=== PATIENT | female | born 1975 | race Caucasian/White ===

== ENCOUNTER 2016-11-12 07:01 | Emergency (ER) | payer OTHER ==
[~2016-11-12] VITALS: Ht 152.4 cm; Wt 65.0 kg
[~2016-11-12 07:01] MED LIST: LEVO50TA4 PO; TRAM50 PO; ZOCO40TA PO
[2016-11-12 07:07] VITALS: BP 136/102; PULSE 83; RESP 16; TEMP 98.3; O2SAT 100
[2016-11-12] MEDS ORDERED: LEVO50TA4 PO (07:20)
[2016-11-12] MEDS ORDERED: SODIUM CHLOR 0.9% 1000 ML INJ 1,000 ML IV ONE (07:27)
[2016-11-12] MEDS ORDERED: METOCLOPRAMIDE HCL 10 MG/2 ML VIAL IVP ONE (07:30)
[2016-11-12] MEDS ORDERED: diphenhydrAMINE HCL 50 MG/ML VIAL IVP ONE (07:30)
[2016-11-12] MEDS ORDERED: SODIUM CHLORIDE 0.9% FLUSH 5 ML FLUSH IVF PRN (07:30)
--- NOTE | 2016-11-12 07:30 | PD ---
HPI Chief Complaint: Headache Time Seen by Provider: 07:27 Travel History International Travel<30 days: No Contact w/Intl Traveler<30days: No Traveled to known affect area: No History of Present Illness HPI 41-year-old female with history of migraine headaches, presents to the ER today with a 7 out of 10 headache that started last night on its own, she has been nauseous and vomiting. She has photophobia. She states that these headaches are not unusual for her and she is waiting to see a neurologist for them. She denies any fevers, stiff neck, abdominal pain, or any other symptoms. Modifying Factors: None Associated Signs & Symptoms: Headache, nausea and vomiting Risk Factors: Migraine headaches PFSH Past Medical History Arthritis: Yes (chronic low back pain, sciatica) Migraines: Yes Thyroid Disease: Yes Influenza Vaccination: No ?: Not Past Surgical History Hysterectomy: Yes Social History Alcohol Use: Yes (occas) Tobacco Use: No Substance Use: No Allergies-Medications (Allergen,Severity, Reaction): Coded Allergies: Ibuprofen (Verified Allergy, Severe, AIRWAY CLOSES, 04/18/16) Aspirin (Verified Allergy, Intermediate, GI UPSET, 04/18/16) Reported Meds & Prescriptions Reported Meds & Active Scripts Active Reported Levothyroxine (Levothyroxine Sodium) 50 Mcg Tab 50 Mcg PO DAILY Review of Systems Except as stated in HPI: all other systems reviewed are Neg Physical Exam Narrative GENERAL: Middle age white female patient who is well developed, awake, alert, oriented 3, in mild distress. Photophobia. SKIN: Warm and dry. HEAD: Atraumatic. Normocephalic. EYES: Pupils equal and round. No scleral icterus. No injection or drainage. ENT: No nasal bleeding or discharge. Mucous membranes pink and moist. NECK: Trachea midline. No JVD. CARDIOVASCULAR: Regular rate and rhythm. No murmur appreciated. RESPIRATORY: No accessory muscle use. Clear to auscultation. Breath sounds equal bilaterally. GASTROINTESTINAL: Abdomen soft, non-tender, nondistended. Hepatic and splenic margins not palpable. MUSCULOSKELETAL: No obvious deformities. No clubbing. No cyanosis. No edema. NEUROLOGICAL: Awake and alert. No obvious cranial nerve deficits. Motor grossly within normal limits. Normal speech. PSYCHIATRIC: Appropriate mood and affect; insight and judgment normal. Data Data Last Documented VS Vital Signs Date Time Temp Pulse Resp B/P Pulse Ox O2 Delivery O2 Flow Rate FiO2 11/12/16 08:21 98 Room Air 11/12/16 07:07 98.3 83 16 136/102 Orders Ecg Monitoring (11/12/16 07:27) Iv Access Insert/Monitor (11/12/16 07:27) Oximetry (11/12/16 07:27) Sodium Chloride 0.9% Flush (Ns Flush) (11/12/16 07:30) Diphenhydramine Inj (Benadryl Inj) (11/12/16 07:30) Metoclopramide Inj (Reglan Inj) (11/12/16 07:30) Sodium Chlor 0.9% 1000 Ml Inj (Ns 1000 M (11/12/16 07:27) MDM Medical Decision Making Medical Screen Exam Complete: Yes Emergency Medical Condition: Yes Medical Record Reviewed: Yes Differential Diagnosis Headachesmigraine headaches versus meningitis versus other acute intracranial processes Narrative Course Patient was initiated on a liter IV fluids normal saline, Reglan, and Benadryl in the ER. On reevaluation at 8:40 AM, she is feeling improved, states that headache has gone down to below a 5 out of 10. At this point, my plan would be to release her with follow-up to primary care physician and neurologist. We will give her further symptomatic relief for the headache. The plan has been discussed with her and she states understanding. Diagnosis Primary Impression: Migraine headache Med/Other Pt SpecificInfo: Prescription(s) given Scripts Metoclopramide (Reglan)10 Mg Tab10 Mg PO QID PRN (HEADACHE) #20 TAB Ref 0 Prov:Neri Storm MD 11/12/16 Disposition: 01 DISCHARGE HOME Condition: Stable Neri Storm MD Nov 12, 2016 07:30
[2016-11-12 08:21] VITALS: O2SAT 98
[2016-11-12] MEDS ORDERED: REGL10TA5 PO (08:43)
[2016-11-12 08:55] VITALS: BP 150/86; PULSE 73; RESP 18; O2SAT 98
== END 2016-11-12 08:56 | disposition home or self-care (01) ==
LOC: PHED 07:01
DX: G43.909 Migraine, unspecified, not intractable, without status migrainosus (principal)
CPT/HCPCS: 96361; 96374; 96375; 99283; J1200; J2765; J7030

== ENCOUNTER 2017-01-22 10:28 | Emergency (ER) | payer OTHER ==
[~2017-01-22] VITALS: Ht 152.4 cm; Wt 66.0 kg
[~2017-01-22 10:28] MED LIST changes: +REGL10TA5 PO; -TRAM50 PO; -ZOCO40TA PO
[2017-01-22 10:29] VITALS: BP 123/75; PULSE 100; RESP 16; TEMP 98.3; O2SAT 100
[2017-01-22] MEDS ORDERED: LEXA10TA PO (10:44)
[2017-01-22] MEDS ORDERED: CLON1 PO (10:44)
--- NOTE | 2017-01-22 11:19 | PD ---
HPI Chief Complaint: Headache Time Seen by Provider: 11:17 Travel History International Travel<30 days: No Contact w/Intl Traveler<30days: No Traveled to known affect area: No History of Present Illness HPI 41 year old female with PMH of migraine headache presents to the the ED for evaluation of 9/10 frontal headache. Onset ~3am. Accompanied by N/V and blurred vision. Patient states this headache is very similar to her previous headaches. Denies facial droop, speech difficulties, numbness, tingling or weakness of the extremities. Followed by MEDINA Gong who prescribed the patient Fioricet. Patient states that she is out of the medicine. She has an appointment with a neurologist January 28. PFSH Past Medical History Arthritis: Yes (chronic low back pain, sciatica) Migraines: Yes Thyroid Disease: Yes ?: Not Past Surgical History Hysterectomy: Yes Social History Alcohol Use: Yes (occas) Tobacco Use: No Substance Use: No Allergies-Medications (Allergen,Severity, Reaction): Coded Allergies: Ibuprofen (Verified Allergy, Severe, AIRWAY CLOSES, 01/22/17) Imitrex (Verified Allergy, Severe, 01/22/17) Aspirin (Verified Allergy, Intermediate, GI UPSET, 01/22/17) Reported Meds & Prescriptions Reported Meds & Active Scripts Active Fioricet (Icaxqlnwed-Xpwvrnrmpyrrx-Vonapkjs) 50-300-40 Mg Cap 1-2 Cap PO Q6H PRN Reported Klonopin (Clonazepam) 1 Mg Tab 1 Mg PO PRN Lexapro (Escitalopram Oxalate) 10 Mg Tab 10 Mg PO DAILY Levothyroxine (Levothyroxine Sodium) 50 Mcg Tab 50 Mcg PO DAILY Review of Systems Except as stated in HPI: all other systems reviewed are Neg Physical Exam Narrative GENERAL: Well-nourished, well-developed white female in no acute distress. SKIN: Focused skin assessment warm/dry. HEAD: Normocephalic. EYES: No scleral icterus. No injection or drainage. PERRLA. EOMI. NECK: Supple, trachea midline. No JVD or lymphadenopathy. CARDIOVASCULAR: Regular rate and rhythm without murmurs, gallops, or rubs. RESPIRATORY: Breath sounds clear and equal bilaterally. No accessory muscle use. GASTROINTESTINAL: Abdomen soft, non-tender, nondistended. MUSCULOSKELETAL: No cyanosis, or edema. The patient is ambulatory and moves extremities spontaneously. NEUROLOGICAL: Awake and alert. Cranial nerves II through XII intact. Motor and sensory grossly within normal limits. 5/5 muscle strength in all muscle groups. No pronator drift. Normal speech. BACK: Nontender without obvious deformity. No CVA tenderness. Data Data Last Documented VS Vital Signs Date Time Temp Pulse Resp B/P Pulse Ox O2 Delivery O2 Flow Rate FiO2 01/22/17 12:11 82 20 113/63 100 01/22/17 10:29 98.3 Orders Iv Access Insert/Monitor (01/22/17 11:25) Sodium Chloride 0.9% Flush (Ns Flush) (01/22/17 11:30) Sodium Chlor 0.9% 1000 Ml Inj (Ns 1000 M (01/22/17 11:25) Metoclopramide Inj (Reglan Inj) (01/22/17 11:30) Diphenhydramine Inj (Benadryl Inj) (01/22/17 11:30) Morphine Inj (Morphine Inj) (01/22/17 12:15) MDM Medical Decision Making Medical Screen Exam Complete: Yes Emergency Medical Condition: Yes Differential Diagnosis cephalgia versus migraine versus less likely ICH versus other Narrative Course 41 year old female with PMH of migraine headache presents to the the ED for evaluation of 9/10 frontal headache. Onset ~3am. Accompanied by N/V and blurred vision. Patient states this headache is very similar to her previous headaches. Denies facial droop, speech difficulties, numbness, tingling or weakness of the extremities. Followed by MEDINA Valencia who prescribed the patient Fioricet. Patient states that she is out of the medicine. She has an appointment with a neurologist January 28. Vitals reviewed. Physical exam reveals a nontoxic appearing white female in NAD. No focal neuro deficits. Cranial nerves II through XII grossly intact. 5/5 strength in all extremities. IV was established. Patient was administered IV Benadryl, Reglan and a liter of normal saline. On repeat check she denies improvement of symptoms. She was administered 2 mg morphine IV. On recheck the patient is sleeping on the stretcher, reports improvement of her symptoms. No episodes of vomiting in the ED. Patient is instructed to rest, hydrate, avoid known stressors, follow-up with primary care and neurologist as planned. She was provided a few doses of Fioricet. She indicated understanding of the instructions and is agreeable to the care plan. The patient is stable and discharged home. Diagnosis Primary Impression: Migraine headache Qualified Code: G43.709 - Chronic migraine without aura without status migrainosus, not intractable Referrals: Primary Care Physician Patient Instructions: General Instructions, Migraine Headache (ED) Additional Instructions: Rest, hydrate. Avoid known stressors. Follow up with the primary care provider and neurologist as discussed. Return to the ED for any urgent of emergent medical condition. Med/Other Pt SpecificInfo: Prescription(s) given Scripts Nfgblfemwl-Dpvimwbuohllg-Qucgjbyj (Fioricet)50-300-40 Mg Cap1-2 Cap PO Q6H PRN ( HEADACHE) #6 CAP Ref 0 Prov:Saeid Richardson MD 01/22/17 Disposition: 01 DISCHARGE HOME Condition: Stable Elvie Alatorre January 22, 2017 11:19 Elvie Alatorre January 22, 2017 11:19
[2017-01-22] MEDS ORDERED: SODIUM CHLOR 0.9% 1000 ML INJ 1,000 ML IV ONE (11:25)
[2017-01-22] MEDS ORDERED: SODIUM CHLORIDE 0.9% FLUSH 10 ML FLUSH IVF PRN (11:30)
[2017-01-22] MEDS ORDERED: METOCLOPRAMIDE HCL 10 MG/2 ML VIAL IVP ONE (11:30)
[2017-01-22] MEDS ORDERED: diphenhydrAMINE HCL 50 MG/ML VIAL IVP ONE (11:30)
[2017-01-22] MEDS ORDERED: BUTA1CAP PO (11:33)
[2017-01-22 12:11] VITALS: BP 113/63; PULSE 82; RESP 20; O2SAT 100
[2017-01-22] MEDS ORDERED: MORPHINE SULFATE 4 MG/ML INJ IV PUSH ONE (12:15)
== END 2017-01-22 12:46 | disposition home or self-care (01) ==
LOC: PHEFT 10:28
DX: G43.909 Migraine, unspecified, not intractable, without status migrainosus (principal); M19.90 Unspecified osteoarthritis, unspecified site; Z79.899 Other long term (current) drug therapy
CPT/HCPCS: 96361; 96374; 96375; 99284; J1200; J2270; J2765; J7030

== ENCOUNTER 2017-01-24 16:32 | Emergency (ER) | payer OTHER ==
[~2017-01-24] VITALS: Ht 152.4 cm; Wt 67.0 kg
[~2017-01-24 16:32] MED LIST changes: +BUTA1CAP PO; +CLON1 PO; +LEXA10TA PO; -REGL10TA5 PO
[2017-01-24 16:39] VITALS: BP 120/82; PULSE 83; RESP 16; TEMP 98.5; O2SAT 100
[2017-01-24] MEDS ORDERED: PROCHLORPERAZINE INJ 10 MG/2 ML VIAL IVP ONE (17:00)
[2017-01-24] MEDS ORDERED: SODIUM CHLORIDE 0.9% FLUSH 10 ML FLUSH IVF PRN (17:00)
[2017-01-24] MEDS ORDERED: diphenhydrAMINE HCL 50 MG/ML VIAL IVP ONE (17:00)
--- NOTE | 2017-01-24 17:12 | PD ---
HPI . Migraine headache Chief Complaint: Headache Time Seen by Provider: 16:48 Travel History International Travel<30 days: No Contact w/Intl Traveler<30days: No Traveled to known affect area: No History of Present Illness HPI Patient presents with the chief complaint of migraine. She describes a throbbing frontal headache. It is associated with photophobia, phonophobia and nausea. It has been unrelieved by Fioricet. She reports that she has been "foggy." Patient reports a lifelong history of migraine headaches. She has moved here from [place] and does not have a neurologist to follow her for her headaches. [facility] Past Medical History Arthritis: Yes (chronic low back pain, sciatica) Diminished Hearing: No Migraines: Yes Thyroid Disease: Yes Tetanus Vaccination: Unknown ?: Not Past Surgical History Hysterectomy: Yes Social History Alcohol Use: Yes (occas) Tobacco Use: No Substance Use: No Allergies-Medications (Allergen,Severity, Reaction): Coded Allergies: Ibuprofen (Verified Allergy, Severe, AIRWAY CLOSES, 01/24/17) Imitrex (Verified Allergy, Severe, 01/24/17) Aspirin (Verified Allergy, Intermediate, GI UPSET, 01/24/17) Reported Meds & Prescriptions Reported Meds & Active Scripts Active Fioricet (Ydyxwloasb-Cjsiupzjyayji-Cbjmwoie) 50-300-40 Mg Cap 1-2 Cap PO Q6H PRN Reported Klonopin (Clonazepam) 1 Mg Tab 1 Mg PO PRN Lexapro (Escitalopram Oxalate) 10 Mg Tab 10 Mg PO DAILY Levothyroxine (Levothyroxine Sodium) 50 Mcg Tab 50 Mcg PO DAILY Review of Systems Except as stated in HPI: all other systems reviewed are Neg Eyes: Positive: Photophobia, No: Blurred Vision HENT: Positive: Headaches Physical Exam Narrative GENERAL: Patient is awake and alert and does not appear to be in any acute distress. SKIN: Warm and dry. HEAD: Atraumatic. Normocephalic. EYES: Pupils equal and round. Extraocular movements are intact. ENT: No nasal bleeding or discharge. Mucous membranes pink and moist. NECK: Trachea midline. Supple. CARDIOVASCULAR: Regular rate and rhythm. RESPIRATORY: No accessory muscle use. MUSCULOSKELETAL: No obvious deformities. No edema. NEUROLOGICAL: Awake and alert. No obvious cranial nerve deficits. Motor grossly within normal limits. Normal speech. Qsbbyi-tzmj-fgopxm exam is intact. PSYCHIATRIC: Appropriate mood and affect; insight and judgment normal. Data Data Last Documented VS Vital Signs Date Time Temp Pulse Resp B/P Pulse Ox O2 Delivery O2 Flow Rate FiO2 01/24/17 18:12 65 18 163/75 98 Room Air 01/24/17 16:39 98.5 Orders Iv Access Insert/Monitor (01/24/17 16:49) Sodium Chloride 0.9% Flush (Ns Flush) (01/24/17 17:00) Prochlorperazine Inj (Compazine Inj) (01/24/17 17:00) Diphenhydramine Inj (Benadryl Inj) (01/24/17 17:00) Mri Brain W/O Contrast (01/24/17 17:06) Lorazepam Inj (Ativan Inj) (01/24/17 18:30) MDM Medical Decision Making Medical Screen Exam Complete: Yes Emergency Medical Condition: Yes Differential Diagnosis Differential diagnosis of headache includes but is not limited to migraine, muscle contraction headache, brain tumor, brain bleed Narrative Course Patient presents with a headache. She has not had any recent imaging done here. I have ordered an MRI of the complaint of mental status change. Diagnosis Primary Impression: Migraine headache Qualified Code: G43.901 - Migraine with status migrainosus, not intractable, unspecified migraine type Disposition: 01 DISCHARGE HOME Condition: Stable Cassy Garland MD January 24, 2017 17:12
[2017-01-24 18:12] VITALS: BP 163/75; PULSE 65; RESP 18; O2SAT 98
[2017-01-24] MEDS ORDERED: LORazepam 2 MG/ML VIAL IV PUSH SCH (18:30)
[2017-01-24 19:14] VITALS: BP 135/78; PULSE 82; RESP 16; O2SAT 96
[2017-01-24] MEDS ORDERED: ONDANSETRON HCL 4 MG/2 ML VIAL IV ONE (19:30)
[2017-01-24] MEDS ORDERED: HYDROmorphone HCL PF 1 MG/ML VIAL IVP ONE ×2 (19:30→20:30)
--- NOTE | 2017-01-24 19:59 | RADHPO ---
EXAM DATE/TIME: 01/24/2017 19:10 [facility] COMPARISON: No previous studies available for comparison. INDICATIONS : Cephalgia. MEDICAL HISTORY : None. SURGICAL HISTORY : Hysterectomy. ENCOUNTER: Initial ACUITY: 1 day PAIN SCORE: 4/10 LOCATION: cranial TECHNIQUE: Multiplanar, multisequence MRI of the brain was performed without contrast. FINDINGS: CEREBRUM: The ventricles are normal for age. No evidence of midline shift, mass lesion, hemorrha ge or acute infarction. No extraaxial fluid collections are seen. The pituitary gland and suprasell ar cistern are normal in configuration. WHITE MATTER: No significant signal abnormalities are seen in the white matter. POSTERIOR FOSSA: The cerebellum and brainstem are intact. The 4th ventricle is midline. The cere bellopontine angle is unremarkable. The cerebellar tonsils are normal in position. DIFFUSION IMAGING: No focal areas of restricted diffusion are seen. No evidence of acute infarct ion. EXTRACRANIAL: The visualized portions of the orbits and paranasal sinuses are unremarkable. CONCLUSION: Negative MRI of the brain. MRI cannot be used to exclude an acute subarachnoid hemor rhage in the various paramagnetic appearances of hemorrhage.. Otis Camacho MD FACR on January 24, 2017 at 19:54 Board Certified Radiologist. This report was verified electronically.
[2017-01-24] MEDS ORDERED: KETOROLAC TROMETHAMINE 60 MG/2 ML (IM) VIAL IVP ONE (20:30)
--- NOTE | 2017-01-24 21:05 | RADHPO ---
EXAM DATE/TIME: 01/24/2017 20:43 [facility] COMPARISON: No previous studies available for comparison. INDICATIONS : Cephalgia. RADIATION DOSE: 64.37 CTDIvol (mGy) MEDICAL HISTORY : None SURGICAL HISTORY : Hysterectomy. ENCOUNTER: Initial ACUITY: 1 day PAIN SCALE: 8/10 LOCATION: Bilateral cranial TECHNIQUE: Multiple contiguous axial images were obtained of the head. Using automated exposure control and adj ustment of the mA and/or kV according to patient size, radiation dose was kept as low as reasonably a chievable to obtain optimal diagnostic quality images. FINDINGS: CEREBRUM: The ventricles are normal for age. No evidence of midline shift, mass lesion, hemorrhage or acute in farction. No extra-axial fluid collections are seen. POSTERIOR FOSSA: The cerebellum and brainstem are intact. The 4th ventricle is midline. The cerebellopontine angle i s unremarkable. EXTRACRANIAL: The visualized portion of the orbits is intact. SKULL: The calvaria is intact. No evidence of skull fracture. CONCLUSION: No acute disease. Otis Camacho MD FACR on January 24, 2017 at 21:02 Board Certified Radiologist. This report was verified electronically.
[2017-01-24 21:26] VITALS: BP 146/80; PULSE 78; RESP 16; O2SAT 96
--- NOTE | 2017-01-24 21:29 | PD ---
Physical Exam Time Seen by Provider: 21:[address] Garland left this patient with me to check the results of the MRI that she ordered and make a disposition, likely discharge. Data Data Last Documented VS Vital Signs Date Time Temp Pulse Resp B/P Pulse Ox O2 Delivery O2 Flow Rate FiO2 01/24/17 21:26 Room Air 01/24/17 21:26 78 16 146/80 96 01/24/17 16:39 98.5 Orders Iv Access Insert/Monitor (01/24/17 16:49) Sodium Chloride 0.9% Flush (Ns Flush) (01/24/17 17:00) Prochlorperazine Inj (Compazine Inj) (01/24/17 17:00) Diphenhydramine Inj (Benadryl Inj) (01/24/17 17:00) Mri Brain W/O Contrast (01/24/17 17:06) Lorazepam Inj (Ativan Inj) (01/24/17 18:30) Hydromorphone Pf Inj (Dilaudid Pf Inj) (01/24/17 19:30) Ondansetron Inj (Zofran Inj) (01/24/17 19:30) Ketorolac Inj (Toradol Inj) (01/24/17 20:30) Hydromorphone Pf Inj (Dilaudid Pf Inj) (01/24/17 20:30) Ct Brain W/O Iv Contrast(Rout) (01/24/17 20:37) Ed Urine Pregnancytest Poc (01/24/17 20:39) Urinalysis - C+S If Indicated (01/24/17 20:39) Labs Laboratory Tests Test 01/24/17 21:10 Urine Color YELLOW Urine Turbidity SLIGHTY CLOUDY Urine pH 5.5 Urine Specific [place] 1.004 Urine Protein NEG mg/dL Urine Glucose (UA) NEG mg/dL Urine Ketones NEG mg/dL Urine Occult Blood NEG Urine Nitrite NEG Urine Bilirubin NEG Urine Leukocyte Esterase SMALL Urine WBC 3-5 /hpf Urine Squamous Epithelial 0-5 /hpf Cells Urine Bacteria OCC /hpf Microscopic Urinalysis Comment CULT NOT INDICATED MDM Medical Record Reviewed: Yes Supervised Visit with KI: Yes Interpretation(s) The CT brain is normal. The urine shows slightly cloudy turbidity, small leukocyte esterase but is otherwise unremarkable and culture is not indicated. Differential Diagnosis Migraine headache, tension headache, tension/migraine combination headache, cluster headache, intracranial bleedunlikely Narrative Course The patient states she had a headache of 8/10 when she came in. The headache was global and of gradual onset. The headache is now 10 over 10 after the patient has been given multiple medications. The MRI is normal. The patient states that she moved in town about a year ago but sometimes required admission at another hospital because of intractable headache. It is now 1019 and the patient's headache is greatly reduced and she wants to go home. This would be a good idea because sleep would help her. The CT brain and the MRI of the brain are both normal. Impression: Migraine headache Plan: The patient will be given prescriptions for Fioricet and Percocet 12/31/24, 12 tablets. Diagnosis Primary Impression: Migraine headache Qualified Code: G43.901 - Migraine with status migrainosus, not intractable, unspecified migraine type Additional Instruction: As you have indicated, to follow-up with your neurologist. We will give you the results of the imaging done here. This will help him. I wrote prescriptions for Fioricet and a few Percocet fives. Med/Other Pt SpecificInfo: Prescription(s) given Scripts Xrkufuefkz-Bzdooonkqpvhw-Kmgronwm (Fioricet)50-300-40 Mg Cap1 Cap PO Q4H PRN ( HEADACHE) #30 CAP Ref 0 Prov:Alexander Turner MD 01/24/17 Oxycodone-Acetaminophen (Percocet)5-325 mg Tab1 Tab PO Q4H PRN (PAIN) #12 TAB Ref 0 Prov:Alexander Turner MD 01/24/17 Disposition: 01 DISCHARGE HOME Condition: Stable Alexander Turner MD January 24, 2017 21:29
[2017-01-24 21:34] LABS: BLOOD, URINE NEG (NEG); GLUCOSE,URINE NEG (NEG); KETONE, URINE NEG (NEG); NITRITE,URINE NEG (NEG); PH, URINE 5.5 (5.0-8.5)
[2017-01-24 21:43] LABS: URINE COLOR YELLOW (YELLW/STRAW)
[2017-01-24 21:44] LABS: BACTERIA, URINE OCC /hpf; COMMENT (UR) CULT NOT INDICATED; CULTURE IF INDICATED CULT NOT INDICATED; SQUAMOUS EPITHELIAL CELL URINE 0-5 /hpf (0-5)
[2017-01-24 22:20] VITALS: RESP 16
[2017-01-24] MEDS ORDERED: PERC5TAB12 PO (22:21)
[2017-01-24] MEDS ORDERED: BUTA1CAP PO (22:22)
[2017-01-24 22:34] VITALS: BP 106/59
== END 2017-01-24 22:50 | disposition home or self-care (01) ==
LOC: PHED 16:32
DX: G43.901 Migraine, unspecified, not intractable, with status migrainosus (principal)
CPT/HCPCS: 70450; 70551; 81001; 84703; 96374; 96375; 96376; 99285; J0780; J1170; J1200; J1885; J2060; J2405

== ENCOUNTER 2017-02-16 23:30 | Emergency (ER) | payer OTHER ==
[~2017-02-16] VITALS: Ht 152.4 cm; Wt 66.1 kg
[~2017-02-16 23:30] MED LIST changes: +PERC5TAB12 PO
[2017-02-16 23:33] VITALS: BP 137/100; PULSE 93; RESP 16; TEMP 97.5; O2SAT 99
[2017-02-16] MEDS ORDERED: DEPA500T PO (23:51)
[2017-02-17] MEDS ORDERED: SODIUM CHLOR 0.9% 1000 ML INJ 1,000 ML IV ONE (00:26)
[2017-02-17] MEDS ORDERED: HYDROmorphone HCL PF 1 MG/ML VIAL IVS ONE (00:30)
[2017-02-17] MEDS ORDERED: PROCHLORPERAZINE INJ 10 MG/2 ML VIAL IVP ONE (00:30)
[2017-02-17] MEDS ORDERED: diphenhydrAMINE HCL 50 MG/ML VIAL IVP ONE (00:30)
[2017-02-17] MEDS ORDERED: SODIUM CHLORIDE 0.9% FLUSH 10 ML FLUSH IVF PRN (00:30)
--- NOTE | 2017-02-17 00:32 | PD ---
HPI Chief Complaint: Headache Time Seen by Provider: 00:20 Travel History International Travel<30 days: No Contact w/Intl Traveler<30days: No Traveled to known affect area: No History of Present Illness HPI The patient is a 41-year-old female that has a history of migraine headaches. She was here approximately 3 weeks ago for the same thing. [place] Klonopin and Depakote but she states they headache medicine is not working. Occasionally Fioricet doesn't work. She states this is her typical bifrontal throbbing headache that she experiences with her typical migraine. The headache is of gradual onset and associated with photophobia/phonophobia along with nausea and vomiting. She states that Imitrex makes her "throat swell". PFSH Past Medical History Arthritis: Yes (chronic low back pain, sciatica) Diminished Hearing: No Immunizations Current: No Migraines: Yes Thyroid Disease: Yes Tetanus Vaccination: < 5 Years Influenza Vaccination: No ?: Not Past Surgical History Hysterectomy: Yes Social History Alcohol Use: Yes (occas) Tobacco Use: No Substance Use: No Allergies-Medications (Allergen,Severity, Reaction): Coded Allergies: Ibuprofen (Verified Allergy, Severe, AIRWAY CLOSES, 02/16/17) Imitrex (Verified Allergy, Severe, Anaphylaxis, 02/16/17) Aspirin (Verified Allergy, Intermediate, GI UPSET, 02/16/17) Reported Meds & Prescriptions Reported Meds & Active Scripts Active Fioricet (Uybjknpgfc-Kyorqbgexyykt-Rtdhnvha) 50-300-40 Mg Cap 1-2 Cap PO Q6H PRN Reported Depakote DR (Divalproex Sodium) 500 Mg Tabdr 500 Mg PO BID Klonopin (Clonazepam) 1 Mg Tab 1 Mg PO PRN Lexapro (Escitalopram Oxalate) 10 Mg Tab 10 Mg PO DAILY Levothyroxine (Levothyroxine Sodium) 50 Mcg Tab 50 Mcg PO DAILY Review of Systems Except as stated in HPI: all other systems reviewed are Neg Physical Exam Narrative GENERAL: The patient is alert, oriented 3 in moderate apparent distress with her headache. Her vital signs aren't normal except for heart rate of 93 and blood pressure 137/100. SKIN: Focused skin assessment warm/dry. No needle tracks nor wrist slash mai are present. HEAD: Atraumatic. Normocephalic. EYES: Pupils equal and round. No scleral icterus. No injection or drainage. ENT: No nasal bleeding or discharge. Mucous membranes pink and moist. NECK: Trachea midline. No JVD. There is no meningismus and the patient flexes neck fully so that the chin touches her chest without any problem. CARDIOVASCULAR: Regular rate and rhythm. No murmur appreciated. RESPIRATORY: No accessory muscle use. Clear to auscultation. Breath sounds equal bilaterally. GASTROINTESTINAL: Abdomen soft, non-tender, nondistended. Hepatic and splenic margins not palpable. MUSCULOSKELETAL: No obvious deformities. No clubbing. No cyanosis. No edema. NEUROLOGICAL: Awake and alert. No obvious cranial nerve deficits. Motor grossly within normal limits. Normal speech and gait. PSYCHIATRIC: The patient is anxious; insight and judgment normal. Data Data Last Documented VS Vital Signs Date Time Temp Pulse Resp B/P Pulse Ox O2 Delivery O2 Flow Rate FiO2 02/17/17 00:51 104 16 126/64 95 Room Air 02/16/17 23:33 97.5 Orders Ecg Monitoring (02/17/17 00:26) Iv Access Insert/Monitor (02/17/17 00:26) Oximetry (02/17/17 00:26) Sodium Chloride 0.9% Flush (Ns Flush) (02/17/17 00:30) Prochlorperazine Inj (Compazine Inj) (02/17/17 00:30) Diphenhydramine Inj (Benadryl Inj) (02/17/17 00:30) Hydromorphone Pf Inj (Dilaudid Pf Inj) (02/17/17 00:30) Sodium Chlor 0.9% 1000 Ml Inj (Ns 1000 M (02/17/17 00:26) MDM Medical Decision Making Medical Screen Exam Complete: Yes Emergency Medical Condition: Yes Medical Record Reviewed: Yes Differential Diagnosis Migraine headache, cluster headache, tension headache, tension/migraine, tension headache, normal pressure hydrocephalusunlikely, intracranial bleed highly unlikely Narrative Course It is now 0107 and the patient is sleeping. The patient will go home and sleep and is discharged on Fioricet. She will follow up with her neurologist in [place]. Diagnosis Primary Impression: Migraine headache Additional Instructions: Follow-up with your neurologist in [place]. There are many medications that he can try if you do not think or you are taking is working. Med/Other Pt SpecificInfo: Prescription(s) given Scripts Ohhpojfill-Grevvtcldlcql-Qqmkvdxe (Fioricet)50-300-40 Mg Cap1-2 Cap PO Q6H PRN ( HEADACHE) #30 CAP Ref 0 Prov:Alexander Turner MD 02/17/17 Disposition: 01 DISCHARGE HOME Condition: Stable Alexander Turner MD Feb 17, 2017 00:32
[2017-02-17 00:51] VITALS: BP 126/64; PULSE 104; RESP 16; O2SAT 95
[2017-02-17] MEDS ORDERED: BUTA1CAP PO (01:09)
== END 2017-02-17 01:23 | disposition home or self-care (01) ==
LOC: PHED 23:30
DX: G43.909 Migraine, unspecified, not intractable, without status migrainosus (principal); E07.9 Disorder of thyroid, unspecified
CPT/HCPCS: 96361; 96374; 96375; 99284; J0780; J1170; J1200; J7030

== ENCOUNTER 2017-04-11 18:24 | Emergency (ER) | payer OTHER ==
[~2017-04-11] VITALS: Ht 152.4 cm; Wt 66.0 kg
[~2017-04-11 18:24] MED LIST changes: +DEPA500T PO; -PERC5TAB12 PO
[2017-04-11 18:28] VITALS: BP 116/56; PULSE 66; RESP 18; TEMP 98; O2SAT 98
[2017-04-11] MEDS ORDERED: VITA10002 PO (19:13)
[2017-04-11] MEDS ORDERED: HYDR50TA94 PO (19:13)
[2017-04-11] MEDS ORDERED: VIIB40TA PO (19:13)
[2017-04-11] MEDS ORDERED: VITA250C3 CHEW (19:13)
[2017-04-11] MEDS ORDERED: DEPA500T3 PO (19:13)
--- NOTE | 2017-04-11 19:29 | PD ---
HPI Chief Complaint: Facial Pain or Swelling Time Seen by Provider: 19:00 Travel History International Travel<30 days: No Contact w/Intl Traveler<30days: No Traveled to known affect area: No History of Present Illness HPI 41-year-old female presents to the emergency room for evaluation of left-sided dental pain and swelling for the past 2 days. States excruciating pain started first and then swelling developed shortly afterward. Patient has been taking Tylenol without any relief in symptoms. She cannot take ibuprofen because it causes anaphylaxis. She denies fever, chills, nausea, vomiting, or draining. She has an appointment with her dentist in 1 week but cannot take the pain until then. PFSH Past Medical History Arthritis: Yes (chronic low back pain, sciatica) Diminished Hearing: No Immunizations Current: No Migraines: Yes Thyroid Disease: Yes ?: Not Past Surgical History Hysterectomy: Yes Social History Alcohol Use: Yes (occas) Tobacco Use: No Substance Use: No Allergies-Medications (Allergen,Severity, Reaction): Coded Allergies: Ibuprofen (Verified Allergy, Severe, AIRWAY CLOSES, 04/11/17) Imitrex (Verified Allergy, Severe, Anaphylaxis, 04/11/17) Aspirin (Verified Allergy, Intermediate, GI UPSET, 04/11/17) Reported Meds & Prescriptions Reported Meds & Active Scripts Active Tramadol (Tramadol HCl) 50 Mg Tab 50 Mg PO Q6H PRN Clindamycin (Clindamycin HCl) 300 Mg Cap 300 Mg PO Q6H 10 Days Reported Vitamin C (Ascorbic Acid) 250 Mg Chew 500 Mg CHEW DAILY Hydroxyzine HCl 50 Mg Tab 50 Mg PO HS Viibryd (Vilazodone) 40 Mg Tab 40 Mg PO DAILY Vitamin B-12 (Cyanocobalamin) 1,000 Mcg Tab 1,000 Mcg PO DAILY Depakote ER (Divalproex Sodium) 500 Mg Sarbjit 500 Mg PO BID Klonopin (Clonazepam) 1 Mg Tab 1 Mg PO PRN Levothyroxine (Levothyroxine Sodium) 50 Mcg Tab 50 Mcg PO DAILY Review of Systems Except as stated in HPI: all other systems reviewed are Neg Physical Exam Narrative GENERAL: Well-nourished, well-developed female in no acute distress. Afebrile. Ambulatory. SKIN: Focused skin assessment warm/dry. HEAD: Normocephalic. EYES: No scleral icterus. No injection or drainage. NECK: Supple, trachea midline. No JVD or lymphadenopathy. DENTAL: No loose or chipped teeth. No malocclusion. There is extreme decay of tooth #18. There is moderate purulent drainage from the tooth. Mild surrounding erythema. Moderate edema that is tender to palpation. No submental , submandibular, or buccal induration. CARDIOVASCULAR: Regular rate and rhythm without murmurs, gallops, or rubs. RESPIRATORY: Breath sounds equal bilaterally. No accessory muscle use. Data Data Last Documented VS Vital Signs Date Time Temp Pulse Resp B/P Pulse Ox O2 Delivery O2 Flow Rate FiO2 04/11/17 18:28 98.0 66 18 116/56 98 MDM Medical Decision Making Medical Screen Exam Complete: Yes Emergency Medical Condition: Yes Medical Record Reviewed: Yes Differential Diagnosis dentalgia, dental decay, dental abscess Narrative Course 41-year-old female presents to the emergency room for evaluation of left-sided dental pain and swelling for the past several days. No history of fevers. Denies drainage. Patient is afebrile and well-appearing in the emergency room. Physical exam reveals mild to moderate edema without induration. Tooth #18 is draining purulent discharge. No evidence of Peter angina. Patient will be discharged with prescriptions for tramadol and clindamycin and told to follow- up with her dentist as planned or return for worsening symptoms. She understands and agrees to plan. Diagnosis Primary Impression: Dental abscess Referrals: Dentist Patient Instructions: Dental Abscess (ED), General Instructions Additional Instructions: Rest and drink plenty of fluids. Tramadol as directed, as needed for pain. Clindamycin as directed, until gone. Follow-up with a dentist. Return to the emergency room for worsening symptoms. Med/Other Pt SpecificInfo: Prescription(s) given Scripts Tramadol 50 Mg Tab50 Mg PO Q6H PRN (PAIN) #12 TAB Ref 0 Prov:Alexander Turner MD 04/11/17 Clindamycin 300 Mg [id number] Mg PO Q6H 10 Days Ref 0 Prov:Alexander Turner MD 04/11/17 Disposition: 01 DISCHARGE HOME Condition: Stable Cinda Lane Apr 11, 2017 19:29
[2017-04-11] MEDS ORDERED: CLIN1CAP6 PO (19:30)
[2017-04-11] MEDS ORDERED: TRAM50TA PO (19:30)
== END 2017-04-11 19:35 | disposition home or self-care (01) ==
LOC: PHED 18:24 → PHEFT 19:35
DX: K04.7 Periapical abscess without sinus (principal)
CPT/HCPCS: 99284

== ENCOUNTER 2017-05-12 06:36 | Emergency (ER) | payer OTHER ==
[~2017-05-12] VITALS: Ht 152.4 cm; Wt 65.8 kg
[~2017-05-12 06:36] MED LIST changes: -BUTA1CAP PO; +CLIN1CAP6 PO; -DEPA500T PO; +DEPA500T3 PO; +HYDR50TA94 PO; -LEXA10TA PO; +TRAM50TA PO; +VIIB40TA PO; +VITA10002 PO; +VITA250C3 CHEW
[2017-05-12 06:40] VITALS: BP 132/79; PULSE 92; RESP 18; TEMP 97.8; O2SAT 97
[2017-05-12 07:48] VITALS: BP 130/75; PULSE 88; RESP 18; O2SAT 100
[2017-05-12] MEDS ORDERED: HYDROmorphone HCL PF 1 MG/ML VIAL IV PUSH ONE ×2 (09:45→11:30)
[2017-05-12] MEDS ORDERED: SODIUM CHLOR 0.9% 1000 ML INJ 1,000 ML IV ONE (09:45)
[2017-05-12] MEDS ORDERED: METOCLOPRAMIDE HCL 10 MG/2 ML VIAL IV PUSH ONE (09:45)
[2017-05-12] MEDS ORDERED: diphenhydrAMINE HCL 50 MG/ML VIAL IV PUSH ONE (09:45)
--- NOTE | 2017-05-12 09:49 | PD ---
HPI Chief Complaint: Headache Time Seen by Provider: 09:39 Travel History International Travel<30 days: No Contact w/Intl Traveler<30days: No Traveled to known affect area: No History of Present Illness HPI This 41-year-old female is complaining of headache. She says she has a history of stress-induced migraines. She has had a headache since 4:00 yesterday afternoon. She usually gets relief with the Reglan and Benadryl occasionally she needs Dilaudid. She says this headache is worse than usual. She has vomited 6 times. She has had a hysterectomy. She does see a neurologist. She was here in January 24 and had a negative CT and MRI of the brain. [facility] Past Medical History Arthritis: Yes (chronic low back pain, sciatica) Diminished Hearing: No Immunizations Current: No Migraines: Yes Thyroid Disease: Yes Past Surgical History Hysterectomy: Yes Social History Alcohol Use: Yes (occas) Tobacco Use: No Substance Use: No Allergies-Medications (Allergen,Severity, Reaction): Coded Allergies: ibuprofen (Unverified Allergy, Severe, AIRWAY CLOSES, 05/12/17) sumatriptan (Unverified Allergy, Severe, Anaphylaxis, 05/12/17) aspirin (Unverified Allergy, Intermediate, GI UPSET, 05/12/17) Reported Meds & Prescriptions Reported Meds & Active Scripts Active Reported Depakote ER (Divalproex Sodium) 500 Mg Sarbjit 500 Mg PO BID Klonopin (Clonazepam) 1 Mg Tab 1 Mg PO PRN Levothyroxine (Levothyroxine Sodium) 50 Mcg Tab 50 Mcg PO DAILY Review of Systems General / Constitutional: No: Fever, Chills Eyes: Positive: Blurred Vision, No: Diploplia HENT: Positive: Headaches Cardiovascular: No: Chest Pain or Discomfort, Palpitations Respiratory: No: Cough, Shortness of Breath Gastrointestinal: Positive: Vomiting Genitourinary: No: Urgency, Frequency Musculoskeletal: No: Myalgias, Arthralgias Skin: No Rash, No Itching Neurologic: Positive: Dizziness, No: Weakness Hematologic/Lymphatic: No: Easy Bruising Physical Exam Narrative GENERAL: Well-developed female SKIN: Focused skin assessment warm/dry. HEAD: Atraumatic. Normocephalic. EYES: Pupils equal and round. No scleral icterus. No injection or drainage. ENT: No nasal bleeding or discharge. Mucous membranes pink and moist. NECK: Trachea midline. No JVD. CARDIOVASCULAR: Regular rate and rhythm. No murmur appreciated. RESPIRATORY: No accessory muscle use. Clear to auscultation. Breath sounds equal bilaterally. GASTROINTESTINAL: Abdomen soft, non-tender, nondistended. Hepatic and splenic margins not palpable. MUSCULOSKELETAL: No obvious deformities. No clubbing. No cyanosis. No edema. NEUROLOGICAL: Awake and alert. No obvious cranial nerve deficits. Motor grossly within normal limits. Normal speech. PSYCHIATRIC: Appropriate mood and affect; insight and judgment normal. Data Data Last Documented VS Vital Signs Date Time Temp Pulse Resp B/P (MAP) Pulse Ox O2 Delivery O2 Flow Rate FiO2 05/12/17 12:03 103 16 100/47 (64) 98 Room Air 05/12/17 06:40 97.8 Orders Orders Sodium Chlor 0.9% 1000 Ml Inj (Ns 1000 M (05/12/17 09:45) Diphenhydramine Inj (Benadryl Inj) (05/12/17 09:45) Metoclopramide Inj (Reglan Inj) (05/12/17 09:45) Hydromorphone Pf Inj (Dilaudid Pf Inj) (05/12/17 09:45) Prochlorperazine Inj (Compazine Inj) (05/12/17 11:30) Hydromorphone Pf Inj (Dilaudid Pf Inj) (05/12/17 11:30) MDM Medical Decision Making Medical Screen Exam Complete: Yes Emergency Medical Condition: Yes Medical Record Reviewed: Yes Differential Diagnosis Differential includes migraine headache, tension headache, Narrative Course Patient has a history of migraines. She was initially given Reglan and Dilaudid. Reported incomplete relief so this was repeated with Dilaudid and Compazine as she is feeling better she is stable for discharge Diagnosis Primary Impression: Migraine headache Qualified Codes: G43.009 - Migraine without aura, not intractable, without status migrainosus Disposition: 01 DISCHARGE HOME Condition: Stable Saeid Richardson MD May 12, 2017 09:49
[2017-05-12] MEDS ORDERED: PROCHLORPERAZINE INJ 10 MG/2 ML VIAL IV PUSH ONE (11:30)
[2017-05-12 12:03] VITALS: BP 100/47; PULSE 103; RESP 16; O2SAT 98
[2017-05-12 12:22] VITALS: BP 98/50; PULSE 74; RESP 18; O2SAT 97
[2017-05-12 12:31] VITALS: RESP 16
== END 2017-05-12 13:08 | disposition home or self-care (01) ==
LOC: PHED 06:36 → PHEFT 13:08
DX: G43.009 Migraine without aura, not intractable, without status migrainosus (principal)
CPT/HCPCS: 96361; 96374; 96375; 96376; 99284; J0780; J1170; J1200; J2765; J7030